=== PATIENT | male | born 1965 | race Caucasian/White ===

== ENCOUNTER 2025-02-24 10:38 | Observation (INO) ==
--- NOTE | 2025-02-01 09:02 | PAT Medication Instructions ---
Medication Instructions Date of Service February 01, 2025 Home Medications albuterol 90 mcg-budesonide 80 mcg/actuation HFA aerosol inhaler (Airsupra) 2 inh inhalation DAILY PRN amlodipine 10 mg tablet 10 mg PO QAM ahxaqbb-yghanltothwao-lqrrgadz 250 mg-250 mg-65 mg tablet (Excedrin Extra S trength) 1 tab PO Q6H PRN budesonide 160 mcg-glycopyr 9 mcg-formot 4.8 mcg/actuation HFA inhaler (Breztri Aerosphere) 2 inh inhalation BID cholecalciferol (vitamin D3) 50 mcg (2,000 unit) capsule (Vitamin D3) 50 mcg PO QAM fluticasone propionate 50 mcg/actuation nasal spray,suspension 2 spray intranasal DAILY PRN loratadine-pseudoephedrine ER 10 mg-240 mg tablet,extended [id number] (Claritin-D 24 Hour) 1 tab PO DAILY PRN losartan 100 mg tablet 100 mg PO QAM omeprazole 20 mg tablet,delayed release 20 mg PO QAM vitamin B complex 1 tab PO QAM zinc 15 mg tablet 15 mg PO QPM Continue as directed fluticasone propionate 50 mcg/actuation nasal spray,suspension 2 spray intranasal DAILY PRN(if needed) albuterol 90 mcg-budesonide 80 mcg/actuation HFA aerosol inhaler (Airsupra) 2 inh inhalation DAILY PRN(use if needed; please bring with you to hospital day of surgery if possible) ASK your surgeon for instructions jqqyxkj-tcnsajsyparkm-sqayglqq 250 mg-250 mg-65 mg tablet (Excedrin Extra Strength) 1 tab PO Q6H PRN DO NOT take the morning of surgery cholecalciferol (vitamin D3) 50 mcg (2,000 unit) capsule (Vitamin D3) 50 mcg PO QAM loratadine-pseudoephedrine ER 10 mg-240 mg tablet,extended [id number] (C laritin-D 24 Hour) 1 tab PO DAILY PRN losartan 100 mg tablet 100 mg PO QAM vitamin B complex 1 tab PO QAM Take morning of surgery With a small sip of water, OTHERWISE NOTHING TO EAT OR DRINK AFTER MIDNIGHT: amlodipine 10 mg tablet 10 mg PO QAM budesonide 160 mcg-glycopyr 9 mcg-formot 4.8 mcg/actuation HFA inhaler (Breztri Aerosphere) 2 inh inhalation BID omeprazole 20 mg tablet,delayed release 20 mg PO QAM Take evening before surgery budesonide 160 mcg-glycopyr 9 mcg-formot 4.8 mcg/actuation HFA inhaler (Breztri Aerosphere) 2 inh inhalation BID zinc 15 mg tablet 15 mg PO QPM Other Notes If you have any questions please call us at [phone] or [phone] or [phone] or [phone]
--- NOTE | 2025-02-10 14:49 | Anesthesiology Consultation ---
Date of Service February 10, 2025 Assessment & Plan (1) Encounter for pre-operative examination: - Outpatient joint assessment: Patient is currently scheduled for inpatient pathway. If re-evaluated and patient/surgeon requests outpatient pathway, patient is acceptable candidate for outpatient joint program from anesthesia standpoint pending surgeon's office assessment of pt motivation/support/completion of same day joint program preop requirements. Chart Review Chart Review: Acceptable Risk for Surgery and Patient seen in Pre Admission Testing Teaching & Discussion Pre-Anesthesia Teaching/Discussion Notes: Instructed NPO after midnight before surgery, except medications with 15 cc of water. Medication instructions provided according to the PAT guidelines. History Surgery Operation Date: 02/24/25 12:30 Proposed Procedures p Left Total Knee Arthroplasty - Avinash Fragoso MD Height/Weight Height: 5 ft 8 in Weight: 85.3 kg Allergies Allergy/AdvReac Type Severity Reaction Status Date / Time Sulfa (Sulfonamide Allergy Rash Verified 01/29/25 15:00 Antibiotics) Medications Home Medications Medication Instructions Recorded Confirmed Last Taken albuterol 90 mcg-budesonide 80 2 inh inhalation DAILY PRN 01/29/25 01/29/25 Unknown mcg/actuation HFA aerosol inhaler Shortness Of Breath (Airsupra) amlodipine 10 mg tablet 10 mg PO QAM 01/29/25 01/29/25 Unknown ilstyya-rdicvycicrqbk-bublepls 250 1 tab PO Q6H PRN Pain 01/29/25 01/29/25 Unknown mg-250 mg-65 mg tablet (Excedrin Extra Strength) budesonide 160 mcg-glycopyr 9 2 inh inhalation BID 01/29/25 01/29/25 Unknown mcg-formot 4.8 mcg/actuation HFA inhaler (Breztri Aerosphere) cholecalciferol (vitamin D3) 50 50 mcg PO QAM 01/29/25 01/29/25 Unknown mcg (2,000 unit) capsule (Vitamin D3) fluticasone propionate 50 2 spray intranasal DAILY PRN 01/29/25 01/29/25 Unknown mcg/actuation nasal Congestion spray,suspension loratadine-pseudoephedrine ER 10 1 tab PO DAILY PRN allergies 01/29/25 01/29/25 Unknown mg-240 mg tablet,extended [id number] (Claritin-D 24 Hour) losartan 100 mg tablet 100 mg PO QAM 01/29/25 01/29/25 Unknown omeprazole 20 mg tablet,delayed 20 mg PO QAM 01/29/25 01/29/25 Unknown release vitamin B complex 1 tab PO QAM 01/29/25 01/29/25 Unknown zinc 15 mg tablet 15 mg PO QPM 01/29/25 01/29/25 Unknown Past Medical History Medical History (Updated 02/10/25 @ 14:53 by María De Jesus PA-C) Asthma with COPD daily and prn inh (flares with allergies and needs to use it); last albuterol inhaler use one week ago History of COVID-19 2019 into 2020, spent 9 days ICU, 13 days total in hospital, [facility]>residual shortness of breath with activities History of hypertension controlled, stable per pt Hx of gastroesophageal reflux (GERD) controlled, stable per pt Hx of migraines Sleep apnea CPAP "most nights" Patient denies h/o stroke, seizures, heart attack, heart failure, blood clots/DVTs or blood transfusions. Exercise / Class Metabolic Activity II 4-5 Yardwork/Stairs/Walk up hill (shortness of breath with one flight of stairs since having COVID 2020-denies change or worsening-denies chest d iscomfort) Past Surgical History Surgical History History of esophagogastroduodenoscopy (EGD) History of open reduction and internal fixation (ORIF) procedure left leg, as a child, pin placed and traction for 1 month > pin removed Hx of colonoscopy Hx of hand surgery to repair nerve in right hand Hx of left inguinal hernia repair Hx of nasal septoplasty (2016) Hx of tonsillectomy Past Anesthesia History No Hx of Anesthesia Complications and No Family Hx of Anesthesia Complications History of PONV No Hx of PONV and No Hx of Motion Sickness Social History Smoking Status: Never smoker Do You Dip or Chew Tobacco: No Hx Alcohol Use: No Hx Substance Use: No substance use type: does not use Review of Systems Patient denies chest pain, fever, chills, cough, wheezing, or palpitations. Physical Exam Vital Signs Vitals BP 149/98 P 93 TEMP 98.2 SP02 95% on RA RESP 18 Physical Patient resting comfortably in chair in no acute distress, alert and oriented, responding appropriately throughout visit Full cervical extension range of motion without pain TMD < 3 finger breadths Mallampati Score 2 Dentition: implant, several caps/crowns, denies chipped or loose teeth, or bridges Lungs: normal respiratory effort. Good air movement, clear throughout to auscultation, no adventitious breath sounds Cardiac: regular rate and rhythm, no murmurs noted Carotid arteries: negative bruit bilat Lab Results Anesthesia Preop Results Results Anesthesia Widget: WBC 6.22 K/ul (4.8-10.8) 02/10/25 Hgb 14.2 g/dl (14.0-18.0) 02/10/25 Hct 40.9 % (42.0-52.0) L 02/10/25 Plt 201 K/uL (130-400) 02/10/25 Na 140 mmol/L (136-145) 02/10/25 K 4.2 mmol/L (3.5-5.1) 02/10/25 Cl 104 mmol/L (98-107) 02/10/25 CO2 30 mmol/L (21-32) 02/10/25 BUN 16 mg/dl (6-23) 02/10/25 Creat 1.08 mg/dl (0.6-1.4) 02/10/25 Glucose Level 93 mg/dl (70-99(Fasting)) 02/10/25 PT 10.5 Seconds (9.0-12.0) 02/10/25 PTT 28 Seconds (21-31) 02/10/25 INR 1.0 (0.9-1.1) 02/10/25 Urine Color Yellow 02/10/25 Urine Appearance Clear (Clear) 02/10/25 Urine pH 6.0 (4.5-7.5) 02/10/25 Urine Specific [place] 1.013 (1.000-1.030) 02/10/25 Urine Protein Negative (Negative) 02/10/25 Urine Glucose (UA) Negative (Negative) 02/10/25 Urine Ketones Negative (Negative) 02/10/25 Urine Blood Negative (Negative) 02/10/25 Urine Nitrite Negative (Negative) 02/10/25 Urine Bilirubin Negative (Negative) 02/10/25 Urine Urobilinogen Negative (Negative) 02/10/25 Urine Leukocyte Esterase Negative (Negative) 02/10/25 Blood Type A Positive 02/10/25 Antibody Screen NEGATIVE 02/10/25 Testing Electrocardiogram Date: 02/10/25 NSR, rate 89 bpm Left axis deviation RBBB Possible inferior infarct Chest X-Ray Date: 02/10/25 No acute cardiopulmonary findings. Echocardiogram Date: 10/18/20 EF 66% Normal LV wall motion Grade I diastolic dysfunction Stress Test Date: 01/09/23 MPHR 84% Negative exercise stress echo for ischemia=EKG nondiagnostic due to failure to achieve 85% MPHR EF 66% Normal LV wall motion Grade I diastolic dysfunction Mild aortic valve regurgitation
--- NOTE | 2025-02-22 20:18 | History & Physical Report ---
Date of Service February 22, 2025 Assessment & Plan (1) Bilateral primary osteoarthritis of knee: Plan: Bilateral knee osteoarthritis left end-stage right mild to moderate. Proceed with left total knee replacement. History of Present Illness Chief Complaint: Chronic bilateral knee pain left greater than right Primary Care Provider: Franco De MD 59-year-old male with chronic bilateral knee pain related to osteoarthritis. He has had previous injections of steroids but they are no longer working and wants to proceed with knee replacement. He has diminishing function in his left knee. Patient denies headaches, sweats, fevers, chills, double vision, blurred vision, cough, sore throat, dysphagia, chest pain, n/v/d/c, numbness, tingling, fatigue, urinary symptoms, mood disorders. ROS positive for shortness of breath with activity climbing a flight of stairs walking up a hill or running short distance. Acid reflux. Allergies Allergy/AdvReac Type Severity Reaction Status Date / Time Sulfa (Sulfonamide Allergy Rash Verified 01/29/25 15:00 Antibiotics) Home Medications Medication Instructions Recorded Confirmed Type albuterol 90 mcg-budesonide 80 2 inh inhalation DAILY PRN 01/29/25 01/29/25 History mcg/actuation HFA aerosol inhaler Shortness Of Breath (Airsupra) amlodipine 10 mg tablet 10 mg PO QAM 01/29/25 01/29/25 History liisppr-nkuqonyiqjefw-sjqrggzj 250 1 tab PO Q6H PRN Pain 01/29/25 01/29/25 History mg-250 mg-65 mg tablet (Excedrin Extra Strength) budesonide 160 mcg-glycopyr 9 2 inh inhalation BID 01/29/25 01/29/25 History mcg-formot 4.8 mcg/actuation HFA inhaler (Breztri Aerosphere) cholecalciferol (vitamin D3) 50 50 mcg PO QAM 01/29/25 01/29/25 History mcg (2,000 unit) capsule (Vitamin D3) fluticasone propionate 50 2 spray intranasal DAILY PRN 01/29/25 01/29/25 History mcg/actuation nasal Congestion spray,suspension loratadine-pseudoephedrine ER 10 1 tab PO DAILY PRN allergies 01/29/25 01/29/25 History mg-240 mg tablet,extended [id number] (Claritin-D 24 Hour) losartan 100 mg tablet 100 mg PO QAM 01/29/25 01/29/25 History omeprazole 20 mg tablet,delayed 20 mg PO QAM 01/29/25 01/29/25 History release vitamin B complex 1 tab PO QAM 01/29/25 01/29/25 History zinc 15 mg tablet 15 mg PO QPM 01/29/25 01/29/25 History Past Med/Surg History Problem List (Updated 02/22/25 @ 20:17 by Avinash Fragoso MD) Bilateral primary osteoarthritis of knee Encounter for pre-operative examination Medical History History of COVID-19 2019 into 2020, spent 9 days ICU, 13 days total in hospital, [facility] [place]>residual shortness of breath with activities Hx of migraines Sleep apnea CPAP "most nights" Hx of gastroesophageal reflux (GERD) controlled, stable per pt History of hypertension controlled, stable per pt Asthma with COPD daily and prn inh (flares with allergies and needs to use it); last albuterol inhaler use one week ago Surgical History Hx of hand surgery to repair nerve in right hand History of open reduction and internal fixation (ORIF) procedure left leg, as a child, pin placed and traction for 1 month > pin removed Hx of left inguinal hernia repair History of esophagogastroduodenoscopy (EGD) Hx of colonoscopy Hx of nasal septoplasty (2016) Hx of tonsillectomy Social History Smoking Status: Never smoker Second Hand Exposure: Yes (hx as child); Do You Dip or Chew Tobacco: No; Tobacco Cessation Education Requested by Patient: No Hx Alcohol Use: No Hx Substance Use: No Preferred Language: Persian Communication Ability: Effective Tool Machinist Required: No Beliefs That Will Affect Care: None Current Living Situation: Spouse Other Information That Helps Us Care for You: No Feels Safe at Home: Yes Safety Concerns: Feels Safe At This Time Assistive Devices: CPAP and Other Assistive Devices Comment: 1 fake tooth implanted lower jaw Review of Systems All systems reviewed & are unremarkable except as noted in HPI & below Physical Exam Constitutional: WD/WN, vitals as above Respiratory: normal respiratory effort; no respiratory distress Cardiovascular: Rate/Rhythm: regular rate and regular rhythm Musculoskeletal: Left knee varus in alignment right knee mild varus. He has medial joint line tenderness bilaterally. He has mild patellofemoral crepitation on the left with discomfort with Kylah tests and moderate pain with flexion 0 through 135 degrees range of motion with old scars left lower leg from old trauma and 2+ edema left leg. Neurocirculatory exam otherwise intact. Skin: no rashes, warm and dry Neurologic: normal touch/pain/proprioception Psychiatric: A+Ox3, euthymic affect Results & Data Diagnostic Findings The x-rays demonstrate end-stage grade 4 medial compartment osteoarthritis left knee with moderate patellofemoral osteoarthritis and more relatively mild to moderate osteoarthritis in the right knee.
[~2025-02-24 10:38] MED LIST: BUPIVACAINE 0.5 % 5 MG/1 ML PF 10ML VIAL ONE; DEXAMETHASONE SOD INJ 4 MG/ML VIAL ONE; GLYCOPYRROLATE 0.2 MG/ML VIAL ONE; LIDOCAINE 2% 2 ML VIAL/AMP(20MG/ML) INFIL ONE; MIDAZOLAM HCL 1 MG/ML 2ML VIAL ONE; ONDANSETRON INJ 2 MG/ML 2 ML VIAL ONE; PHENYLEPHRINE 100MCG/ML 5ML SYR ONE; PROPOFOL IV EMULSION 10 MG/ML 20 ML VIAL IV ONE; ROPIVACAINE 0.5% 5 MG/ML 30 ML VIAL ONE; fentaNYL citrate PF 100 MCG/2 ML VIAL ONE
[2025-02-24] MEDS ORDERED: ePHEDrine sulfate 50 MG/ML AMP IV PRN (10:47)
[2025-02-24] MEDS ORDERED: ATROPINE SULFATE 0.1 MG/ML 10ML SYR IV PRN (10:47)
[2025-02-24] MEDS ORDERED: ONDANSETRON INJ 2 MG/ML 2 ML VIAL IV PRN ×2 (10:47→16:11)
[2025-02-24] MEDS ORDERED: fentaNYL citrate PF 100 MCG/2 ML VIAL IV PRN (10:47)
[2025-02-24] MEDS: LR 60ML/HR IV SCH (11:04)
[2025-02-24] MEDS: LR 500ML BOLUS, THEN 15ML/HR IV SCH (11:04)
[2025-02-24] MEDS: FAMOTIDINE 20 MG TAB PO SCH (11:05)
[2025-02-24] MEDS: GABAPENTIN 600 MG DOSE PO SCH (11:05)
[2025-02-24] MEDS: ACETAMINOPHEN 500 MG TAB PO SCH ×2 (11:05→23:16)
[2025-02-24] MEDS: METOCLOPRAMIDE HCL 10 MG TABLET PO SCH (11:05)
[2025-02-24] MEDS: dexAMETHasone**PF** 10 MG/ML VIAL IV SCH (11:06)
--- NOTE | 2025-02-24 12:31 | History & Physical Bridge Note ---
Date of Service February 24, 2025 History & Physical Bridge Note I have examined the patient, reviewed the History & Physical and in the interval since the performance of the History & Physical I have noted the following changes of clinical significance: no changes noted
[2025-02-24] MEDS: TRANEXAMIC ACID 1,000 MG **IV Pre-op IV SCH (12:47)
[2025-02-24] MEDS: ceFAZolin 2000MG 2,000 MG/15 ML SYR IV SCH ×2 (13:01→20:39)
[2025-02-24] MEDS: ROPIVACAINE 0.5% HCL/PF 246 MG, Ketorolac (*for OR use only*) 30 MG in SODIUM CHLORIDE ... INFIL SCH (13:44)
[2025-02-24] MEDS: ORTHO JOINT ANESTHETIC ONE (13:45)
[2025-02-24] MEDS: TRANEXAMIC ACID 1,000 MG **IV Intra-op IV SCH (14:40)
--- NOTE | 2025-02-24 15:30 | Operative Report ---
Post Operative Report Pre & Post Diagnosis Operation Date: 02/24/25 12:35 Pre-Op Diagnosis: Primary osteoarthritis of left knee Post-Op Diagnosis: Primary osteoarthritis of left knee I identified the patient and participated in the time-out.: Yes Procedure Operation Date: 02/24/25 12:35 Actual Procedures p Left Total Knee Arthroplasty(Left), matilde and Acticoat superficial wound VAC application- Avinash Fragoso MD Surgeon Avinash Fragoso MD Command And Control Specialist Gamaliel WALL Estimated Blood Loss 5 Findings Consistent with Post-Op Diagnosis Specimens Bone cuts Drains 2 Hemovac Anesthesia Type General Regional Complications none Disposition Disposition: Recovery Room Indications 59-year-old male with left knee pain failed conservative management radiographic grade 4 joint space narrowing medial compartment on flexion weightbearing films and moderate patellofemoral osteoarthritis. Description of Procedure Patient taken to the operating room the size under spinal MAC regional block anesthesia. Patient was placed supine on the operating table. A pneumatic tourniquet was placed about the left upper thigh. The left lower extremity was prepped and draped in sterile fashion. Knee exam demonstrated a thin leg with full range of motion and about 10 to 15 degrees hyperextension. Patient a varus knee with no pseudolaxity. The leg was elevated exsanguinated with an Esmarch bandage and pneumatic tourniquet was raised to 275 millimeters of mercury. Skin incised sharply in longitudinal fashion. Subcutaneous flaps elevated. Incision was made through the medial retinaculum extending up in the mid third of the quadriceps tendon and down to the medial tibial tubercle. Intra-articular findings demonstrated medial compartment and patellofemoral osteoarthritis grade 4 flexion osteoarthritis medial compartment and grade 4 chondral lesion medial trochlear groove patellofemoral joint and grade III chondromalacia patella. The Pervacio triathlon total knee arthroplasty system was used. To expose the knee the infrapatellar fat pad was resected. The meniscal remnants and cruciate ligaments were resected. The anterior fat pad over the femur in the area of the location of the anterior flange of the femoral component was resected. The lateral synovial bands were released. The femur was exposed. The CT scan generated custom guide was placed on the femur pinned in position and then the distal femoral cut was made in the +0 position. Bone quality was excellent. The knee was extended and a subperiosteal peel lateral release was performed around the patella. Patella width was measured and width was reproduced using a freehand cut technique and an asymmetric 35 x 10 mm patella component. The 3 drill holes were made . The custom CT generated 4-in-1 cutting block was placed rotated appropriately to match the epicondylar axis pinned in position and then the anterior posterior and chamfer cuts are made. The tibia was then subluxed. The custom tibial cutting guide for the size 4 tibia was applied. The cartilage was curetted off the bone to make sure we had bone contact for appropriate contact points for alignment of the guide which was pinned in position and the alignment mary alice appeared to have appropriate alignment and then this was pinned in position and then the proximal tibial cut was made with the oscillating saw. The tibial stem guide was then adjusted with external rotation in line with the tibial tubercle and pinned in position. The punch for the primary tibial tray was used. Bone was solid. A lamina certified physician's assistant was used and the flexion extension gaps were balanced. No releases were required. All posterior osteophytes removed. All meniscal remnants were resected. The notch cutting device was centered appropriately and the femoral notch cut was made. The femoral trial was inserted. Drill holes for the fixation pegs were drilled. Trial tibial inserts were placed and size 13 gave balanced ligaments through flexion and extension. Patella tracking was assessed. The patella tracked centrally. The trial components were then removed and the orthomix anesthetic cocktail was in jected per protocol. The knee was then copiously irrigated with pulsatile lavage saline solution. Final components were then cemented with Refobacin cement. Final components were Bath triathlon size 5 left posterior stabilized femoral component with a size 4 primary tibial baseplate and a 4 x 13 mm X.3 polyethylene tibial bearing insert and a 35 x 10 mm X.3 polyethylene asymmetric patella and femur had distal fixation pegs on it.. After the cement cured a 3-minute Betadine soak was performed followed by further pulsatile lavage irrigation with saline solution. 2 Hemovac drains were brought out laterally. The quadriceps tendon and medial retinaculum were closed with #2 FiberWire bnqhxi-as-vuabm sutures along the medial retinaculum medial side of the patella and distal quadriceps tendon and an additional gpfgyf-cg-okfyv suture at the apex of the quadriceps tendon split proximally and an additional rncgpa-yb-msjmh suture at the level of the tibial polyethylene in the patella tendon. a 0 running locking STRATAFIX suture was placed starting at the proximal split in the quadriceps tendon extending down to the inferior pole the patella and then below that level nldyhl-so-xazoe #1 Vicryl sutures were utilized to repair the medial retinaculum to the patella tendon. The knee was taken through full range of motion and the repair was secure. Knee range of motion was 0 through 135 degrees. The subcutaneous tissues were closed with 2-0 Vicryl sutures. Skin was closed with surgical denia. A matilde and Acticoat superficial wound VAC was applied. The patient tolerated the procedure well. Gamaliel WALL was my physician district administrative assistant who participated as district administrative assistant and was involved in all aspects of the procedure including patient positioning prepping and draping,leg positioning ,soft tissue retraction and instrument management and participated in the closing and application of the wound VAC and will participate in postoperative care of the patient. The patient tolerated the procedure well. I attest to the content of the Intraoperative Record and any orders documented therein. Any exceptions are noted below.
--- NOTE | 2025-02-24 15:40 | XRay Report ---
XR knee LT 1 or 2V routine CLINICAL HISTORY: Surgical Post Op COMPARISON: None pertinent FINDINGS: 2 views of the left knee demonstrate postsurgical changes of a total knee arthroplasty. Th ere is satisfactory positioning alignment of the prosthetic components. A surgical drain in place. Po stsurgical changes are noted in the soft tissues. IMPRESSION: Satisfactory postop appearance ACT 112: Negative or not required by law. Electronically signed by: Malorie Fink M.D. 02/24/2025 3:39 PM
--- NOTE | 2025-02-24 15:47 | Anesthesiology Progress Note ---
Date of Service February 24, 2025 Anesthesia Post Procedure Vital Signs Vital Signs: Temp Pulse Pulse Resp BP Pulse Ox O2 Del Method 02/24/25 15:35 87 15 107/75 95 Oxymask 02/24/25 15:25 95 H 16 113/74 96 Oxymask 02/24/25 15:18 36.7 C 99 H 16 111/71 96 Oxymask 02/24/25 10:43 Room Air, CPAP 02/24/25 10:42 36.9 C 90 18 165/97 H 99 Room Air, CPAP O2 Flow Rate 02/24/25 15:35 5 02/24/25 15:25 5 02/24/25 15:18 5 02/24/25 10:43 02/24/25 10:42 Pain Intensity Left Knee: Pain Intensity: 7 Notes Mental Status: alert / awake / arousable Patient Amnestic to Procedure: Yes Nausea / Vomiting: adequately controlled Pain: adequately controlled Airway Patency, RR, SpO2: stable & adequate BP & HR: stable & adequate Hydration State: stable & adequate Neuraxial Anesthesia: was administered and sensory block is resolving Anesthetic Complications: no major complications apparent
[2025-02-24] MEDS ORDERED: NON-FORMULARY MEDICATION (Aspirin-Acetaminophen-Caffeine [Excedrin Extra Strength] 250-250 PO PRN (16:11)
[2025-02-24] MEDS ORDERED: FLUTICASONE PROPIONATE NA SPR 16 GM BTL PRN (16:11)
[2025-02-24] MEDS ORDERED: ALUMINUM/MAGNESIUM SUSP 30 ML UDC PO PRN (16:11)
[2025-02-24] MEDS ORDERED: bisacodyL 10 MG SUPP PR PRN (16:11)
[2025-02-24] MEDS ORDERED: diphenhydrAMINE Capsule 25 MG CAP PO PRN (16:11)
[2025-02-24] MEDS ORDERED: NALOXONE HCL 0.4 MG/1 ML VIAL/CARP IV PRN (16:11)
[2025-02-24] MEDS ORDERED: METOCLOPRAMIDE HCL INJ 5 MG/ML 2 ML VIAL IV PRN (16:11)
[2025-02-24] MEDS ORDERED: HYDROmorphone INJ 0.5 MG/0.5 ML SYR IV PRN (16:11)
[2025-02-24] MEDS ORDERED: MAGNESIUM HYDROXIDE SUSP 30 ML UDC PO PRN (16:11)
[2025-02-24] MEDS: SODIUM CHLORIDE 0.9% 1,000 ML IV SCH (16:25)
[2025-02-24] MEDS ORDERED: ALBUTEROL HFA 8 GM INHALER INH PRN (16:38)
[2025-02-24] MEDS ORDERED: PSEUDOEPHEDRINE HCL 30 MG TAB PO PRN (16:40)
[2025-02-24] MEDS: oxyCODONE HCL IR 5 MG TAB (IMMEDIATE RELEASE) PO PRN (18:20)
[2025-02-24] MEDS: DOCUSATE SODIUM 100 MG CAP PO SCH (20:37)
[2025-02-24] MEDS: SENNA 8.6 MG TAB PO SCH (20:37)
[2025-02-24] MEDS: ASPIRIN 81 MG ECTAB PO SCH (20:38)
[2025-02-24] MEDS: TRANEXAMIC ACID / 0.7% NACL 1,000 MG/100 ML BAG IV SCH (20:39)
[2025-02-24] MEDS ORDERED: NON-FORMULARY MEDICATION (Zinc 15 mg Tablet) PO SCH (21:00)
[2025-02-24] MEDS: KETOROLAC TROMETHAMINE 15 MG/ML VIAL IV PRN (23:17)
[2025-02-25 06:57] LABS: Hematocrit (blood only) 37.3 % (42.0-52.0); Hemoglobin 12.9 g/dl (14.0-18.0); Mean Corpuscular Hemoglobin 31.2 pg (25.0-34.0); Mean Corpuscular Hgb Conc 34.6 g/dL (32.0-36.0); Mean Corpuscular Volume 90.3 fL (80.0-100.0); Platelet Count 209 K/uL (130-400); Red Blood Count 4.13 M/uL (4.70-6.10); White Blood Count 11.42 K/ul (4.8-10.8)
[2025-02-25 07:13] LABS: BUN Creatinine Ratio 15.9 (10-20); Creatinine Clr Calc Pharmacy 76.1 ml/min; Potassium 4.4 mmol/L (3.5-5.1)
[2025-02-25 07:24] VITALS: BP 148/92; PULSE 72; RESP 18; TEMP 98.8; O2SAT 94
[2025-02-25] MEDS: dexAMETHasone 10 MG in SYRINGE 0 ML IV SCH (07:30)
--- NOTE | 2025-02-25 07:48 | Orthopedic Progress Note ---
Date of Service February 25, 2025 Assessment & Plan (1) Bilateral primary osteoarthritis of knee: Plan: Postop day 1 left knee replacement. Patient doing satisfactory. Patient can have drain DC'd prior to discharge and be discharged home today and do outpatient physical therapy at [place]. Follow-up 2 weeks for staple removal. Bilateral knee osteoarthritis left end-stage right mild to moderate. Proceed with left total knee replacement. Admission and Anticipated Discharge Date Admission Date: February 24, 2025 Subjective No complaints doing well Review of Systems Review of Systems: Noncontributory Physical Exam Musculoskeletal: Dressing dry and intact, matilde functional. Distal circulation sensorimotor function intact. Results & Data Vital Signs (Past 12 Hours) Vital Signs Temp Pulse Resp BP Pulse Ox O2 Del Method 02/25/25 07:23 37.1 C 72 18 148/92 H 94 Room Air 02/25/25 04:02 37 C 79 14 132/67 93 Room Air 02/24/25 23:21 37.1 C 81 14 125/77 93 Room Air Laboratory Results Labs stable Diagnostic Findings Well aligned total knee replacement left knee
[2025-02-25] MEDS: LOSARTAN POTASSIUM 50 MG TAB PO SCH (09:26)
[2025-02-25] MEDS: VITAMIN B COMPLEX TAB PO SCH (09:26)
[2025-02-25] MEDS: MULTIVITAMIN TAB PO SCH (09:26)
[2025-02-25] MEDS: PANTOprazole 40 MG TAB PO SCH (09:26)
[2025-02-25] MEDS: amLODIPine BESYLATE 5 MG TAB PO SCH (09:26)
[2025-02-25] MEDS: LORATADINE 10 MG TAB PO PRN (09:26)
[2025-02-25] MEDS: CHOLECALCIFEROL 25 MCG (1000 UNITS) TAB PO SCH (09:26)
[2025-02-25] MEDS: FLUTICASONE FUROATE 200MCG 14 PUFFS/INHALER INH SCH (09:28)
[2025-02-25] MEDS: UMECLIDINIUM/VILANTEROL 62.5/25MCG 7 PUFFS/INHALER INH SCH (09:29)
--- OUTSIDE RECORDS SUMMARY | 2025-02-25 11:09 | External Medical Summary | Summary of Care ---
Author Name Unknown Organization [facility] Address [address] [place] [address] Phone [phone] Care Team Providers Care Student Education Specialist Name Role Phone Franco De MD Primary Care Provider Encounter Details Date Type Department Care Team (Late st Contact Info) Description 02/23/2025 Orders Only [facility] [address] [facility] [place] [address] Franco De MD [address] [place] [address] Allergies Active Allergy Reactions Criticality Noted Date Comments Atorvastatin 07/30/2017 MYALGIAS Pravastatin Sodium 07/30/2017 FATIGUE DOESN'T FEEL WELL Propranolol Hcl 01/04/2004 fever and joint swelling, not sure if related to med Sulfa Antibiotics 12/17/2001 hives documented as of this encounter (statuses as of 02/23/2025) Medications FLUTICASONE PROPIONATE 50 MCG/ACT NA SUSP ONE INHALATION EACH NOSTRIL DAILY (DR. WILCOX) 1 Bottle 0 2 Active VITAMIN D 1000 UNITS PO CAPS Take 2 Capsules by mouth. 4 Active ipratropium-albu terol (COMBIVENT RESPIMAT) 20-100 MCG/ACT Inhaler ONE INHALATION EVERY SIX HOURS NEEDED FOR COUGH, WHEEZING, SHORTNESS OF BREATH 1 Inhaler 5 7 Active Loratadine-Pseud oephedrine ER 5-120 MG Tablet Extended Release 12 Hour Take 1 Tablet by mouth in the morning. Active albuterol-ipratr opium (DUONEB) 2.5-0.5 MG/3ML nebulizer solution USE VIA NEBULIZER EVERY 4-6 HOURS NEEDED FOR COUGHING, WHEEZING 120 Vial 8 Active Cyanocobalamin (B-12) 100 MCG TABS ONE DAILY 90 Tab 3 0 Active Excedrin Extra Strength 250-250-65 MG Oral Tablet (Aspirin-Acetami nophen-Caffeine 250-250-65 mg per tab) Take 1 Tablet by mouth every 6 hours as needed. Active amLODIPine Besylate 10 MG Oral Tablet (Norvasc)Indicat ions:HTN, goal below 130/80 TAKE 1 TABLET BY MOUTH EVERY DAY IN THE MORNING 90 Tablet 1 5 Active Omeprazole 20 MG Oral Capsule Delayed Release (PriLOSEC)Indica tions:Gastroesop hageal reflux disease without esophagitis TAKE 1 CAPSULE BY MOUTH EVERY DAY 30 Capsule 8 5 Active Losartan Potassium 100 MG Oral Tablet (Cozaar)Indicati ons:HTN, goal below 130/80 Take 1 Tablet by mouth in the morning. 90 Tablet 2 5 Active Breztri Aerosphere 160-9-4.8 MCG/ACT Inhalation Aerosol (Budeson-Glycopy rrol-Formoterol) Inhale 2 Puffs by mouth in the morning and 2 Puffs before bedtime. 5 Active Airsupra 90-80 MCG/ACT Inhalation Aerosol (Albuterol-Budes onide) Inhale 1-2 puffs every 4-6 hours as needed. 5 Active documented as of this encounter (statuses as of 02/23/2025) Active Problems Problem Noted Date Diagnosed Date Anxiety disorder due to medical condition 2020 B12 deficiency 11/23/2019 Overview (11/23/2019): LOW NORMAL B12 LEVEL 2019 Hypertrophy of both inferior nasal turbinates Deviated nasal septum 01/14/2017 Gastroesophageal reflux disease without esophagi tis 06/16/2016 Overview (05/21/2019): SYMPTOMS NOT CONTROLLED ON H2 CATHY Assessment & Plan (12/18/2024 2:44 PM EST): Discussed concern for chronic use of omeprazole. Advised to try otc pepcid to lower overall omep use. HTN, goal below 130/80 06/16/2016 Vitamin D deficiency 04/25/2014 Asthma, severe persistent 12/11/2011 Overview (12/16/2014): SPIROMETRY 11/2014; FEV1/FVC 0.82, FEV1 110% Assessment & Plan (02/15/2025 1:08 PM EDT): Overall well controlled on Breztri. Assessment & Plan (12/18/2024 2:44 PM EST): Overall doing well. He does have some exercise induced symptoms and advised to use albuterol prior to. Continue breztri and care w/ Dr. Lugo HTN, goal below 140/90 09/05/2009 Overview (09/05/2009): Modified per HTN protocol #16. Assessment & Plan (02/15/2025 1:08 PM EDT): Well controlled on losartan, norvasc. Assessment & Plan (12/18/2024 2:44 PM EST): Well controlled. Continue losartan, norvasc. Get prior to next visit in a year: Orders: BASIC METABOLIC PANEL; Future Migraine 09/25/2005 Chronic rhinitis 12/03/2002 documented as of this encounter (statuses as of 02/23/2025) Resolved Problems Problem Noted Date Diagnosed Date Resolved Date Pneumonia due to COVID-19 virus 10/22/2020 05/22/2022 COVID-19 virus infection 10/10/202006/2021 Moderate malnutrition 10/10/20202021 Acute respiratory failure with hypoxia 01/31/2018 10/22/2020 Parainfluenza infection 01/30/2018 08/0 04/2019 SOB (shortness of breath) 01/30/2018 Cough 01/30/2018 05/20/2019 Asthma, moderate persistent 01/30/2018 05/20/2019 Hypokalemia 01/30/2018 02/01/2018 Asthma exacerbation 01/30/2018 02/02/20 18 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 ADVANCE DIRECTIVE INFORMATION 11/13/2005 08/17/2024 Overview (11/13/2005): No, Advance Directive brochure given to patient. s/p facial rash 06/21/2003 12/11/2011 documented as of this encounter (statuses as of 02/23/2025) Immunizations Name Administration Dates Next Due COVID-19 mRNA, LNP-s, No Pre serve, 2-Dose Series (Carrier IQ) 08/12/2021,01/24/2021,01/03/2021 Pneumococcal Conjugate Vacci ne, 20-valent ([id number]) 12/18/2024 Pneumococcal Polysaccharide PPV23 (Pneumovax) 12/11/2011 Seasonal Influenza Vac., MDV , IM, 0.5 mL (Fluzone) 11/08/2014,10/20/2013,07/15/2012,12/11 Seasonal Influenza, PF, 6 M & above, IM , (FluLaval or Fluzone) 08/18/2022,11/23/2021,08/15/2020,09/08,07/30/2017 Seasonal Influenza, Quadriva lent, No Preserve, IM 08/14/2018,12/04/2016,11/11/2015 TDAP (age 10 and older)(Boostrix) 05/20/2019 TDAP, Age 7 and older, IM (Adacel) 04/05/2008 Zoster Vaccine Recombinant (Shingrix) 02/22/2023 ,12/13/2022 documented as of this encounter Social History Tobacco Use Types Packs/Day Years Used Date Smoking Tobacco: Never Smokeless Tobacco: Never Alcohol Use Standard Drinks/Week Comments No 0 (1 standard drink = 0.6 oz pur e alcohol) PHQ-2 Answer Date Recorded PHQ Adult Total Score 0 12/18/2024 Hunger Vital Sign Answer Date Recorded Within the past 12 months, y ou worried that your food would run out before you got the money to buy more. Never true 12/18/19 25 Within the past 12 months, t he food you bought just didn't last and you didn't have money to get more. Never true 12/17/2024 Childcare Answer Date Recorded Do you feel overwhelmed with taking care of a child, family member or friend? No 12/17/2024 Does your family need help f inding childcare? (Household - for ages 0-17 years) Not on file 12/17/2024 Clothing Answer Date Recorded Have you been unable to get clothing when it was really needed? No 12/17/2024 Is your family able to get c lothes or diapers when needed? (Household - for ages 0-17 years) Not on file 12/17/2024 Personal Safety Answer Date Recorded Do you feel unsafe or have concerns for your saf ety? No 12/17/2024 Do you have concerns for you r family's safety? (Household - for ages 0-17 years) Not on file 12/17/2024 Utilities Answer Date Recorded Do you have trouble paying y our heating, water, or electric bill? No 12/17/2024 Is your family able to pay t he heat, water, or electric bill? (Household - for ages 0-17 years) Not on file 12/17/2024 Does your family have access to good internet? (Household - for ages 0-17 years) Not on file 12/17/2024 Employment Status Answer Date Recorded Are you unemployed or without regular income? No 12/17/2024 Does the household have a re gular source of income? (Household - for ages 0-17 years) Not on file 12/17/2024 Social Connections Answer Date Recorded How often do you feel lonely or isolated from th ose around you? Never 12/17/2024 Financial Resource Strain Answer Date R ecorded Do you have any trouble payi ng for your medications, or do you think you might in the future? No 12/17/2024 Does your family have troubl e paying for medicine? (Household - for ages 0-17 years) Not on file 12/17/2024 Transportation Needs Answer Date Record ed Do you have trouble getting a ride to medical visits or work? (Adult - for ages 18 years and over) Not on file 12/17/2024 Does your family have a hard time getting a ride to doctors visits? (Household - for ages 0-17 years) Not on file 12/17/2024 Has lack of transportation k ept you from medical appointments, meetings, work, or from getting things needed for daily living? Check all that apply. No 12/17/2024 Do you (or your family) have trouble finding or paying for a ride (transportation)? (Household - for ages 0-17 years) Not on file 12/17/2024 Housing Stability Answer Date Recorded Do you currently live in a s helter or have no steady place to sleep at night? No 12/17/2024 Do you think you are at risk of becoming homeless? (Adult - for ages 18 years and over) Not on file 12/17/2024 Does your family worry about paying for your home or becoming homeless? (Household - for ages 0-17 years) Not on file 0 12/17/2024 Are you homeless or worried that you might be in the future? No 12/17/2024 Are you (or your family) kelly eless or worried that you might be in the future? (Household - for ages 0-17 years) Not on file Food Insecurity Answer Date Recorded Do you need food for this week? No 12/02/2023 Are you able to get enough f ood for your family? (Household - for ages 0-17 years) Not on file 12/02/2023 Does your family need food t his week? (Household - for ages 0-17 years) Not on file 12/02/2023 Do you always have enough fo od for your family? (Household - for ages 0-17 years) Not on file 12/02/2023 Food Insecurity Answer Date Recorded Within the past 12 months, y ou worried that your food would run out before you got the money to buy more. Never true 12/18/19 25 Within the past 12 months, t he food you bought just didn't last and you didn't have money to get more. Never true 12/17/2024 Do you need food for this week? No 12/17/2024 Sex and Gender Information Value Date Recorded Sex Assigned at Male 11/23/2019 2:28 PM EST Legal Sex Male 7:15 AM EST Gender Identity Male 11/23/2019 2:28 PM EST Sexual Orientation Straight 11/23/2019 2: 28 PM EST documented as of this encounter Functional Status * Are you deaf or do you have serious difficulty hearing? Answer Date of Assessment Author No 01/30/2018 11:08 PM Lizeth Lundy RN * Are you blind or do you have serious difficulty seeing, even when wearing glasses? Answer Date of Assessment Author No 01/30/2018 11:08 PM Lizeth Lundy RN * Do you have serious difficulty walking or climbing stairs? (5 years old or older) Answer Date of Assessment Author No 10/10/2020 12:19 PM EST Brendan ward, Suzanne, AUDIT MANAGER * Do you have difficulty dressing or bathing? (5 years old or older) Answer Date of Assessment Author No 01/30/2018 11:08 PM Lizeth Lundy RN * Because of a physical, mental, or emotional condition, do you have difficulty doing errands alone such as visiting a doctor’s office or shopping? (15 years old or older) Answer Date of Assessment Author No 01/30/2018 11:08 PM Lizeth Lundy RN documented as of this encounter Mental Status * Because of a physical, mental, or emotional condition, do you have serious difficulty concentrating, remembering, or making decisions? (5 years old or older) Answer Entry Date Author No 01/30/2018 11:08 PM EDT Lizeth Khoury RN documented in this encounter Plan of Treatment Upcoming Encounters Date Type Department Care Team (Late st Contact Info) Description 03/23/2025 12:30 PM EDT Office Visit Dermatology, [facility] [place] [address] [place] [phone] Michelle Nash PA-C [address] [place] [address] 07/05/2025 9:30 AM EDT Hospital Encounter [facility], Endoscopy [address] [phone] Ryan Sharif MD [address] [place] [id number] 07/05/2025 9:30 AM EDT - 07/05/2025 10:00 AM EDT Surgery [facility], Endoscopy [address] [phone] Ryan Sharif MD [address] [place] [id number] COLONOSCOPY FLEXIBLE PROXIMAL DIAGNOSTIC 12/20/2025 2:00 PM EDT [facility] [phone] Franco De [facility] [address] [facility] [place] [address] Scheduled Procedures Name Priority Associated Diagnoses Date/Ti me COLONOSCOPY FLEXIBLE PROXIMAL DIAGNOSTIC Recall History of colonic polyps 07/05/2025 9:30 AM EDT Health Maintenance Due Date Last Done Comments HIV Screening 1979 Hepatitis C Screening 1982 Cologuard 2009 Fecal Occult Blood Test 2009 Sigmoidoscopy 2009 COVID-19 Vaccine ( season) 2024 08/12/2021, 01/24/2021, 01/03/2021 HOME BP CUFF VALIDATION YEARLY 12/15/2024 12/16/2023 Influenza Vaccine (FLU shot) (Season Ended) 2025 08/18/2022, 11/23/2021, 08/15/2020, Additional history exists Colonoscopy 07/18/2025 07/18/2020, 02/2020, 07/19/2015, Additional history exists Colorectal Cancer Screening 07/18/2025 Depression Screening 12/18/2025 12/18/2024 GFR 02/10/2026 02/10/2025, 11/14, 11/19/2023, Additional history exists Albumin/Creatinine Ratio 11/19/2026 024, 11/26/2022, 10/29/2019 Diabetes Screening 02/11/2028 02/10/2025, 0 11/30/2024, 11/19/2023, Additional history exists Lipid Panel 11/19/2028 11/19/2023, 10/16, 10/29/2019, Additional history exists DTap/Tdap Vaccines (3 - Td or Tdap) 05/20/2029 05/20/2019, 04/05/2008 RETIRED - COLONOSCOPY-EVERY 5 YRS AGES 18-100 Discontinued 07/18/2020, 07/18/2020, 07/19/2015, Additional history exists Zoster Vaccines Completed 02/22/2023, 12/13/2022 Pneumococcal Vaccine: 50+ Years Completed 12/18/2024, 12/11/2011 EKG Completed 02/10/2025, 03/2023, 10/10/2020, Additional history exists HPV (Gardasil) Vaccine Aged Out No lo nger eligible based on patient's age to complete this topic Hepatitis B Vaccine Aged Out No longe r eligible based on patient's age to complete this topic MENINGOCOCCAL (MENACTRA/MENVEO) Aged Out No longer eligible based on patient's age to complete this topic Meningitis B Vaccine (Bexsero/Trumemba) Aged Out No longer eligible based on patient's age to complete this topic documented as of this encounter Medical Devices Not on filedocumented as of this encounter Procedures Procedure Name Priority Date/Time Associated Diagnosis Comments XR CHEST 2 VIEWS Routine 02/10/2025 CHEMISTRY-OUTSIDE Routine 02/10/2025 documented in this encounter Results * CHEMISTRY-OUTSIDE (02/10/2025) Not all results display below - see scan for full detail OUTSIDE LAB (SEE SCANNED REPORT) Comment:SCAN INCLUDES - CBCD , PT INR, PTT, BMP, ALB, UA CREATININE 1.08 0.6 - 1.4 MG/DL OUTSIDE LAB (SEE SCANNED REPORT) EGFR 78.56 ML/MIN OUTSIDE LA B (SEE SCANNED REPORT) POTASSIUM 4.2 3.5 - 5.1 MMOL/L OUTSIDE LAB (SEE SCANNED REPORT) GLUCOSE 93 70 - 99 MG/DL OUTSIDE LAB (SEE SCANNED REPORT) HOURS FASTING OUTSID E LAB (SEE SCANNED REPORT) TRIGLYCERIDES-OU TSIDE LAB OUTSIDE LAB (SEE SCANNED REPORT) CHOLESTEROL-OUTS SHOAIB LAB OUTSIDE LAB (SEE SCANNED REPORT) HDL-OUTSIDE LAB OUTS SHOAIB LAB (SEE SCANNED REPORT) CHOL/HDL RATIO-OUTSIDE LAB OUTSIDE LAB (SEE SCANNED REPORT) LDL (CALCULATED)-OUT SIDE LAB OUTSIDE LAB (SEE SCANNED REPORT) LDL (DIRECT MEASURE)-OUTSIDE LAB OUTSIDE LAB (SEE SCANNED REPORT) HEMOGLOBIN, [id number] LAB OUTSIDE LAB (SEE SCANNED REPORT) PHOSPHORUS-OUTSI DE LAB OUTSIDE LAB (SEE SCANNED REPORT) PTH-OUTSIDE LAB OUTS SHOAIB LAB (SEE SCANNED REPORT) MICROALBUMIN RATIO-OUTSIDE LAB OUTSIDE LAB (SEE SCANNED REPORT) PROTEIN, UA-OUTSIDE LAB NEGATIVE NEGATIVE OUTSIDE LAB (SEE SCANNED REPORT) HGB 14.2 14.0 - 18.0 G/DL OUTSIDE LAB (SEE SCANNED REPORT) 02/10/2025 us Avinash Fragoso MD LABORATORY Final Resu lt OUTSIDE LAB (SEE SCANNED REPORT) * XR CHEST 2 VIEWS (02/10/2025) Anatomical Region Laterality Modality Chest Other 02/10/2025 us Avinash Fragoso MD RADIOLOGY (RAD GENERAL) Fi nal Result documented in this encounter Advance Directives * Full Code (Latest Code Status on File) Date Activated Date Inactivated Comments 10/10/2020 2:16 AM 10/22/2020 3:05 PM This order r eflects the patients wishes and were consensually agreed upon. * Full Code Date Activated Date Inactivated Comments 01/30/2018 9:48 PM 02/01/2018 2:42 PM This order r eflects the patients wishes and were consensually agreed upon. Care Teams Student Education Specialist Relationship Specialty Start Date End Date Franco De MD [address] [place] [id number] PCP - General Family Medicine 11/23/21 documented as of this encounter
--- OUTSIDE RECORDS SUMMARY | 2025-02-25 11:09 | External Medical Summary | Summary of Care ---
Author Name Unknown Organization [facility] Address [address] [place] [address] Phone [phone] Care Team Providers Care Maintainability Engineer Name Role Phone Franco De MD Primary Care Provider Reason for Visit * Reason Comments Pre-op Clearance Encounter Details Date Type Department Care Team (Late st Contact Info) Description 02/15/2025 12:40 PM EDT Office Visit [facility] [address] [facility] [place] [place] [address] Franco De MD 21 [place] [address] Preoperative clearance*; Severe persistent asthma without complication; HTN, goal below 140/90 Allergies Active Allergy Reactions Criticality Noted Date Comments Atorvastatin 07/30/2017 MYALGIAS Pravastatin Sodium 07/30/2017 FATIGUE DOESN'T FEEL WELL Propranolol Hcl 01/04/2004 fever and joint swelling, not sure if related to med Sulfa Antibiotics 12/17/2001 hives documented as of this encounter (statuses as of 02/16/2025) Medications FLUTICASONE PROPIONATE 50 MCG/ACT NA SUSP ONE INHALATION EACH NOSTRIL DAILY (DR. WILCOX) 1 Bottle 0 2 Active VITAMIN D 1000 UNITS PO CAPS Take 2 Capsules by mouth. 4 Active ipratropium-alb uterol (COMBIVENT RESPIMAT) 20-100 MCG/ACT Inhaler ONE INHALATION EVERY SIX HOURS NEEDED FOR COUGH, WHEEZING, SHORTNESS OF BREATH 1 Inhaler 5 7 Active Loratadine-Pseu doephedrine ER 5-120 MG Tablet Extended Release 12 Hour Take 1 Tablet by mouth in the morning. Active albuterol-iprat ropium (DUONEB) 2.5-0.5 MG/3ML nebulizer solution USE VIA NEBULIZER EVERY 4-6 HOURS NEEDED FOR COUGHING, WHEEZING 120 Vial 8 Active Cyanocobalamin (B-12) 100 MCG TABS ONE DAILY 90 Tab 3 0 Active Excedrin Extra Strength 250-250-65 MG Oral Tablet (Aspirin-Acetam inophen-Caffein e 250-250-65 mg per tab) Take 1 Tablet by mouth every 6 hours as needed. Active amLODIPine Besylate 10 MG Oral Tablet (Norvasc)Indica tions:HTN, goal below 130/80 TAKE 1 TABLET BY MOUTH EVERY DAY IN THE MORNING 90 Tablet 1 5 Active Omeprazole 20 MG Oral Capsule Delayed Release (PriLOSEC)Indic ations:Gastroes ophageal reflux disease without esophagitis TAKE 1 CAPSULE BY MOUTH EVERY DAY 30 Capsule 8 5 Active Losartan Potassium 100 MG Oral Tablet (Cozaar)Indicat ions:HTN, goal below 130/80 Take 1 Tablet by mouth in the morning. 90 Tablet 2 5 Active Breztri Aerosphere 160-9-4.8 MCG/ACT Inhalation Aerosol (Budeson-Glycop yrrol-Formotero l) Inhale 2 Puffs by mouth in the morning and 2 Puffs before bedtime. 5 Active Airsupra 90-80 MCG/ACT Inhalation Aerosol (Albuterol-[place] sonide) Inhale 1-2 puffs every 4-6 hours as needed. 5 Active SYMBICORT 160-4.5 MCG/ACT inhaler Inhale 2 Puffs by mouth in the morning and 2 Puffs before bedtime. 0 02/16/20 25 Discontin ued(Patie nt preferenc e/discont inuation) documented as of this encounter (statuses as of 02/16/2025) Active Problems Problem Noted Date Diagnosed Date [...] as of this encounter (statuses as of 02/16/2025) Resolved Problems Problem Noted Date Diagnosed Date [...] as of this encounter (statuses as of 02/16/2025) Immunizations Name Administration Dates Next Due COVID-19 mRNA, LNP-s, No Pre serve, 2-Dose Series ([employer]) 08/12/2021,01/24/2021,01/03/2021 Pneumococcal Conjugate Vacci ne, 20-valent ([id number]) 12/18/2024 Pneumococcal Polysaccharide PPV23 (Pneumovax) 12/11/2011 Seasonal [...] Date Smoking Tobacco: Never Smokeless Tobacco: Never Tobacco Cessation:Counseling Given: Not Answered Alcohol Use Standard Drinks/Week Comments No 0 [...] 12/17/2024 Does the household have a re lar source of income? (Household - for ages [...] PM EST documented as of this encounter Last Filed Vital Signs Vital Sign Reading Time Taken Comments Blood Pressure 132/84 02/15/2025 12:24 PM EDT Pulse 96 02/15/2025 12:24 PM EDT Temperature 36.4 °C (97.5 °F) 02/15/2025 12:24 PM E DT Respiratory Rate 16 02/15/2025 12:24 PM EDT Oxygen Saturation 97% 02/15/2025 12:24 PM EDT Inhaled Oxygen Concentration - - Weight 85.9 kg (189 lb 6.4 oz) 02/15/2025 12:24 PM EDT Height 170.2 cm (5' 7") 02/15/2025 12:24 PM EDT Body Mass Index 29.66 02/15/2025 12:24 PM EDT documented in this encounter Functional Status * Are you deaf or do you have serious difficulty hearing? Answer Date of Assessment Author No 01/30/2018 11:08 PM EDT Lizeth Khoury RN * Are you blind or do you have serious difficulty seeing, even when wearing glasses? Answer Date of Assessment Author No 01/30/2018 11:08 PM Lizeth Lundy RN * Do you have serious difficulty walking or climbing stairs? (5 years old or older) Answer Date of Assessment Author No 10/10/2020 12:19 PM DUANE ward, DAYANA Palacios * Do you have difficulty dressing or bathing? (5 years old or older) Answer Date of Assessment Author No 01/30/2018 11:08 PM EDLizeth Murray RN * Because of a physical, mental, [...] Entry Date Author No 01/30/2018 11:08 PM Lizeth Lundy RN documented in this encounter Progress Notes * Franco De MD - 02/15/2025 12:36 PM EDT Images from the original note were not included. Subjective Justino Frances II is a 59 year old male that presents for Pre-op Clearance He is here at the request of Dr. Fragoso for preop clearance for left knee replacement on 02/24/25. He had EKG, CXR, and blood work done at [facility] 5 days ago (results not received). He was told if he didn't hear back, that everything was fine. He hasn't heard anything back. He has been having problems w/ his left knee for years. He has been doing injections and they no longer work. He has been told there is no cartilage left. His last major procedure was a nasal procedure in 2017. He has not had any change in his health since that time. He has never had any problems w/ any procedure or anesthetic that he has had. He doesn't really check his bp at home. His asthma is generally well controlled. He sees Dr. Rodriguez. He has never had any problems w/ his asthma during any procedure. It usually kicks in when he has the flu. He does not feel limited at all by his breathing. He uses Breztri daily, and has Airsupra if he needs it, but that's rare. He takes claritin D for his allergies. He knows he shouldn't take the "D" part, but it helps. He does not have any chest pain w/ exertion. He could go up 2 flights of stairs w/o any difficulty.He thinks it's because of his weight. ROS: No f/c; no cp/sob; no n/v/d; no cough/cold symptoms; no UTI symptoms. Objective BP 132/84 | Pulse 96 | Temp 97.5 °F (36.4 °C) (Tympanic) | Resp 16 | Ht 5' 7" (1.702 m) | Wt 189 lb 6.4 oz (85.9 kg) | SpO2 97% | BMI 29.66 kg/m² | BSA 2.02 m² Physical Exam Vitals reviewed. Constitutional: General: He is not in acute distress. Appearance: Normal appearance. He is not ill-appearing. HENT: Right Ear: Tympanic membrane, ear canal and external ear normal. Left Ear: Tympanic membrane, ear canal and external ear normal. Nose: Nose normal. Mouth/Throat: Mouth: Mucous membranes are moist. Pharynx: Oropharynx is clear. No oropharyngeal exudate or posterior oropharyngeal erythema. Eyes: Extraocular Movements: Extraocular movements intact. Conjunctiva/sclera: Conjunctivae normal. Pupils: Pupils are equal, round, and reactive to light. Cardiovascular: Rate and Rhythm: Normal rate and regular rhythm. Heart sounds: Normal heart sounds. No murmur heard. No friction rub. No gallop. Pulmonary: Effort: Pulmonary effort is normal. Breath sounds: Normal breath sounds. No wheezing, rhonchi or rales. Abdominal: General: Bowel sounds are normal. There is no distension. Palpations: Abdomen is soft. There is no mass. Tenderness: There is no abdominal tenderness. There is no guarding. Musculoskeletal: Cervical back: Normal range of motion and neck supple. Skin: General: Skin is warm and dry. Neurological: Mental Status: He is alert and oriented to person, place, and time. Psychiatric: Mood and Affect: Mood normal. Behavior: Behavior normal. Results reviewed : BMP Assessment and Plan Preoperative clearance Pending results of labs, EKG and CXR from [facility], he is medically cleared for sugery. Will try to getthose results ELLIOT. Severe persistent asthma without complication Overall well controlled on Breztri. HTN, goal below 140/90 Well controlled on losartan, norvasc. Wrap-Up Follow Up: Return if symptoms worsen or fail to improve and as scheduled. I spent a total of 40-54 minutes (exact time 40 mins) on the date of service in preparation, delivery, and documentation of the care provided to Justino Frances II excluding any time spent in the performance of separately billed services. * Michelle Fernandez CMA - 02/15/2025 12:23 PM EDT Chief Complaint Patient presents with Pre-op Clearance documented in this encounter Miscellaneous Notes * Assessment & Plan Note - Franco De MD - 02/15/2025 1:08 PM EDT Associated Problem(s): Asthma, severe persistent Overall well controlled on Breztri. * Assessment & Plan Note - Franco De MD - 02/15/2025 1:08 PM EDT Associated Problem(s): HTN, goal below 140/90 Well controlled on losartan, norvasc. documented in this encounter Plan of Treatment Upcoming Encounters Date Type Department Care Team (Late st Contact Info) Description 03/23/2025 12:30 PM EDT Office Visit Dermatology, [facility] [address] [place] [address] Michelle Nash PA-C [address] [place] [address] 07/05/2025 9:30 AM EDT Hospital Encounter ENDO GECL, Endoscopy [address] [phone] Ryan Sharif MD [address] [place] [address] 07/05/2025 9:30 AM EDT - 07/05/2025 10:00 AM EDT Surgery ENDO GECL, Endoscopy [address] [phone] Ryan Sharif MD [address] [place] [address] COLONOSCOPY FLEXIBLE PROXIMAL DIAGNOSTIC 12/20/2025 2:00 PM EDT [facility] [address] [phone] Franco De MD [address] [address] Scheduled Procedures Name Priority Associated Diagnoses Date/Ti [...] Additional history exists Colorectal Cancer Screening 07/18/2025 GFR 11/30/2025 11/30/2024, 03/2024, 11/26/2022, Additional history exists Depression Screening 12/18/2025 12/18/2024 Albumin/Creatinine Ratio 11/19/2026 024, 11/26/2022, 10/29/2019 Diabetes Screening 11/30/2027 11/30/2024, 0 11/19/2023, 11/26/2022, Additional history exists Lipid Panel 11/19/2028 11/19/2023, 10/16, 10/29/2019, Additional history exists DTap/Tdap Vaccines (3 - Td or Tdap) 05/20/2029 05/20/2019, 04/05/2008 RETIRED - COLONOSCOPY-EVERY 5 YRS AGES 18-100 Discontinued 07/18/2020, 07/18/2020, 07/19/2015, Additional history exists Zoster Vaccines Completed 02/22/2023, 12/13/2022 Pneumococcal Vaccine: 50+ Years Completed 12/18/2024, 12/11/2011 HPV (Gardasil) Vaccine Aged Out No lo [...] Not on filedocumented as of this encounter Visit Diagnoses Diagnosis Physical exam, annual- Primary Routine general medical examination at a health care facility Severe persistent asthma without complication Screening for depression HTN, goal below 140/90 Unspecified essential hypertension Gastroesophageal reflux disease without esophagitis Esophageal reflux Screening for colon cancer Special screening for malignant neoplasms, colon Need for pneumococcal vaccination Need for prophylactic vaccination against streptococcus pneumoniae (pneumococcus) Neoplasm of uncertain behavior of skin Preoperative clearance- Primary Preoperative examination, unspecified Severe persistent asthma without complication HTN, goal below 140/90 Unspecified essential hypertension History of colonic polyps Personal history of colonic polyps documented in this encounter Advance Directives * [...] and were consensually agreed upon. Care Teams Maintainability Engineer Relationship Specialty Start Date End Date Franco De MD [address] [id number] PCP - General Family Medicine 11/23/21 documented as of this encounter
--- OUTSIDE RECORDS SUMMARY | 2025-02-25 11:09 | External Medical Summary | Summary of Care ---
Author Name Unknown Organization [facility] Address [address] [place] [address] Phone [phone] Care Team Providers Care Filter Tip Inspector Name Role Phone Franco De MD Primary Care Provider Reason for Visit * Reason Onset Date Comments Advice 02/23/2025 Left message 02/11 3 Encounter Details Date Type Department Care Team (Late st Contact Info) Description 02/23/2025 Telephone [facility] [address] [place] [address] Franco De MD [address] [place] [address] Advice (Left message 02/23) Allergies Active Allergy Reactions Criticality Noted Date Comments Atorvastatin 07/30/2017 MYALGIAS Pravastatin Sodium 07/30/2017 FATIGUE DOESN'T FEEL WELL Propranolol Hcl 01/04/2004 fever and joint swelling, not sure if related to med Sulfa Antibiotics 12/17/2001 hives documented as of this encounter (statuses as of 02/24/2025) Medications FLUTICASONE PROPIONATE 50 MCG/ACT NA SUSP [...] as of this encounter (statuses as of 02/24/2025) Active Problems Problem Noted Date Diagnosed Date [...] as of this encounter (statuses as of 02/24/2025) Resolved Problems Problem Noted Date Diagnosed Date [...] as of this encounter (statuses as of 02/24/2025) Immunizations Name Administration Dates Next Due COVID-19 mRNA, LNP-s, No Pre serve, 2-Dose Series ([employer]) 08/12/2021,01/24/2021,01/03/2021 Pneumococcal Conjugate Vacci ne, 20-valent ([id number]) 12/18/2024 Pneumococcal Polysaccharide PPV23 (Pneumovax) 12/11/2011 Seasonal [...] 10/10/2020 12:19 PM EST Brendan ward, Suzanne, AGRICULTURAL AGENT * Do you have difficulty dressing or [...] Author No 01/30/2018 11:08 PM EDT Lizeth Khoury, RN documented in this encounter Miscellaneous Notes * Telephone Encounter - Kay Santos OSA - 02/23/2025 4:23 PM EDT Reason for patient's call: Regarding in below for PreOp for surgery tomorrow 02/24 Caller was transferred to [facility] at the clinic. * Telephone Encounter - Jarocho Murdock OSA - 02/23/2025 3:58 PM EDT Tracey calling back from [facility] need EKG clearance from 02/15 addended ( in [facility]) to cleared. Patient having surgery tomorrow [phone] * Telephone Encounter - Laya Vick, MED ASSIST - 02/23/2025 3:46 PM EDT Left message for Tracey that pt was cleared and to call back for note if needed to . * Telephone Encounter - Marli Oneil LPN - 02/23/2025 3:23 PM EDT [facility] calling to question if pt is cleared for surgery, which is sched tomorrow; needing an answer by 4:00pm today Dr Pandya out of clinic, will ask Dr De Anda to review Labs, EKG, cxr available for review in [facility], pre op exam done on 02/15/25 * Telephone Encounter - Naida Patricia OSA - 02/23/2025 3:23 PM EDT Please let Tracey know at [phone] if a provider can complete this. If it will be after 4pm she states to please have someone call her and they will try to work with you on this as they'd like to keep the pt on schedule for his surgery. * Telephone Encounter - Kiki Lau LPN - 02/23/2025 11:28 AM EDT Tracey from [facility] Anesthesia dept calling Pt is scheduled for surgery tomorrow 02/24, Dr Fragoso. All his preop testing is avail in [employer] to review. Please indicate if he is cleared for surgery. Tracey has access to Epic, please addend OV note from 02/15, she will be able to review it. * Telephone Encounter - Monique Weston OSA - 02/23/2025 11:27 AM EDT Tracey from [facility], transferred to [facility] Nurse Telma documented in this encounter Plan of Treatment Upcoming Encounters Date Type Department Care Team (Late st Contact Info) Description 03/23/2025 12:30 PM EDT Office Visit Dermatology, [facility] Wilkins [address] [place] [address] Michelle Nash PA-C [address] [address] 07/05/2025 9:30 AM EDT Hospital [facility] [address] [facility] [place] [phone] Ryan Sharif MD [address] [place] [address] 07/05/2025 9:30 AM EDT - 07/05/2025 10:00 AM EDT Surgery ENDO GECL, Endoscopy Suite [facility] [address] [facility] [place] [phone] Ryan Sharif MD [address] [place] [address] COLONOSCOPY FLEXIBLE PROXIMAL DIAGNOSTIC 12/20/2025 2:00 PM EDT Office Visit [facility] [address] [facility] [place] [phone] Franco De MD [address] [place] [place] [phone] Scheduled Procedures Name Priority Associated Diagnoses Date/Ti [...] Not on filedocumented as of this encounter Advance Directives * Full Code (Latest Code Status on File) Date Activated Date Inactivated Comments 10/10/2020 2:16 AM 10/22/2020 3:05 PM This order r eflects the patients wishes and were consensually agreed upon. * Full Code Date Activated Date Inactivated Comments 01/30/2018 9:48 PM 02/01/2018 2:42 PM This order r eflects the patients wishes and were consensually agreed upon. Care Teams Filter Tip Inspector Relationship Specialty Start Date End Date Franco De MD [address] [place] [address] PCP - General Family Medicine 11/23/21 documented as of this encounter
--- OUTSIDE RECORDS SUMMARY | 2025-02-25 11:09 | External Medical Summary | Summary of Care ---
Author Name Unknown Organization [facility] Address [address] [place] [address] Phone [phone] Care Team Providers Care Pantographer Name Role Phone Franco De MD Primary Care Provider Reason for Visit * Reason Comments Pre-op Clearance Encounter Details Date Type Department Care Team (Late st Contact Info) Description 02/15/2025 12:40 PM EDT Office Visit [facility] 21 [place] [address] Franco De MD [address] [place] [address] Preoperative clearance*; Severe persistent asthma [...] 5 Active Airsupra 90-80 MCG/ACT Inhalation Aerosol (Albuterol-[place] sonide) Inhale 1-2 puffs every 4-6 hours [...] mRNA, LNP-s, No Pre serve, 2-Dose Series ([employer]) 08/12/2021,01/24/2021,01/03/2021 Pneumococcal Conjugate Vacci ne, 20-valent ([id number]) 12/18/2024 Pneumococcal Polysaccharide PPV23 (Pneumovax) 12/11/2011 Seasonal [...] 11:08 PM EDT Lizeth Khoury RN * Do you have serious difficulty walking or climbing stairs? (5 years old or older) Answer Date of Assessment Author No 10/10/2020 12:19 PM EST Brendan ward, Suzanne, WOOD HACKER * Do you have difficulty dressing or bathing? (5 years old or older) Answer Date of Assessment Author No 01/30/2018 11:08 PM EDT Liezth Khoury RN * Because of a physical, mental, or emotional condition, do you have difficulty doing errands alone such as visiting a doctor’s office or shopping? (15 years old or older) Answer Date of Assessment Author No 01/30/2018 11:08 PM HENOKT Lizeth Khoury RN documented as of this encounter Mental Status * Because of a physical, mental, or emotional condition, do you have serious difficulty concentrating, remembering, or making decisions? (5 years old or older) Answer Entry Date Author No 01/30/2018 11:08 PM HENOKT Lizeth Khoury RN documented in this encounter Progress Notes * Jarett De Anda MD - 02/23/2025 3:40 PM EDT Received TE that pt needs answer on labs. Just received today. Labs from [facility] and CXR reviewed, all normal. ECG reviewed, which may show some slight changes in leads II and AVL, however, prior ECG was tachycardic so subtle changes are difficult to appreciate given that vastly different rate. He did have a stress test which was normal in 2022. I called and he has had no pain, pressure or other abrupt change in stamina. Per PCP's note, can proceed with surgery given normal labs. I have low concern for heart disease atthis time and surgery does not need to be delayed. * Franco De MD - 02/15/2025 12:36 PM EDT Images from the original note were not included. Subjective Justino Frances II is a 59 year old male that presents for Pre-op Clearance He is here at the request of Dr. Fragoso for preop clearance for left knee replacement on 02/24/25. He had EKG, CXR, and blood work done at [facility] 5 days ago (results not received). [...] results of labs, EKG and CXR from [facility], he is medically cleared for sugery. [...] [address] [place] [address] Michelle Nash PA-C [address] [place] [place] [address] 07/05/2025 9:30 AM EDT Hospital Encounter ENDO GECL, Endoscopy Suite [facility] [address] [facility] [place] [phone] Ryan Sharif MD [address] [place] [address] 07/05/2025 9:30 AM EDT - 07/05/2025 10:00 AM EDT Surgery ENDO GECL, Endoscopy Suite [facility] [address] [facility] [place] [phone] Ryan Sharif MD [address] [place] [address] COLONOSCOPY FLEXIBLE PROXIMAL DIAGNOSTIC 12/20/2025 2:00 PM EDT Office Visit [facility] [address] [phone] Franco De MD [address] [place] [address] Scheduled Procedures Name Priority Associated Diagnoses Date/Ti [...] and were consensually agreed upon. Care Teams Pantographer Relationship Specialty Start Date End Date Franco De MD [address] [address] PCP - General Family Medicine 11/23/21 documented as of this encounter
--- OUTSIDE RECORDS SUMMARY | 2025-02-25 11:09 | External Medical Summary | Summary of Care ---
Author Name Unknown Organization [facility] Address [address] [place] [address] Phone [phone] Care Team Providers Care Reconciler Name Role Phone Franco De MD Primary Care Provider Encounter Details Date Type Department Care Team (Late st Contact Info) Description 02/10/2025 Result Scan Unspecified Department <No scans attached> Allergies Active Allergy Reactions Criticality Noted Date [...] the morning. 90 Tablet 2 5 Active documented as of this encounter [...] mRNA, LNP-s, No Pre serve, 2-Dose Series ([employer]) 08/12/2021,01/24/2021,01/03/2021 Pneumococcal Conjugate Vacci ne, 20-valent ([id number]) 12/18/2024 Pneumococcal Polysaccharide PPV23 (Pneumovax) 12/11/2011 Seasonal [...] 10/10/2020 12:19 PM EST Brendan ward, Suzanne, TAKE OFF WORKER * Do you have difficulty dressing or bathing? (5 years old or older) Answer Date of Assessment Author No 01/30/2018 11:08 PM EDT Lizeth Khoury RN * Because of a physical, mental, or emotional condition, do you have difficulty doing errands alone such as visiting a doctor’s office or shopping? (15 years old or older) Answer Date of Assessment Author No 01/30/2018 11:08 PM EDT Lizeth Khoury RN documented as of this encounter Mental Status * Because of a physical, mental, or emotional condition, do you have serious difficulty concentrating, remembering, or making decisions? (5 years old or older) Answer Entry Date Author No 01/30/2018 11:08 PM EDT Lizeth Khoury RN documented in this encounter Miscellaneous Notes * Result Encounter Note - Gigi Maracno PA-C - 02/23/2025 11:33 AM EDT Currently admitted to [facility] documented in this encounter Plan of Treatment Upcoming Encounters Date Type Department Care Team (Late st Contact Info) Description 03/23/2025 12:30 PM EDT Office Visit Dermatology, [facility]isse Wilkins [address] [phone] Michelle Nash PA-C [address] [place] [address] 07/05/2025 9:30 AM EDT Hospital Encounter ENDO GECL, Endoscopy [address] [place] [phone] Ryan Sharif MD [address] [place] [address] 07/05/2025 9:30 AM EDT - 07/05/2025 10:00 AM EDT Surgery ENDO GE, Endoscopy [address] [place] [phone] Ryan Sharif MD [address] [place] [address] COLONOSCOPY FLEXIBLE PROXIMAL DIAGNOSTIC 12/20/2025 2:00 PM EDT Office Visit [facility] [address] [facility] [place] [phone] Franco De MD [address] [facility] [place] [address] Scheduled Procedures Name Priority Associated Diagnoses Date/Ti [...] Procedure Name Priority Date/Time Associated Diagnosis Comments EKG SCANNED RESULT 02/10/2025 documented in this encounter Results * EKG SCANNED RESULT (02/10/2025) 02/10/2025 us No Physician Data Unknown EKG Final Result documented in this encounter Advance Directives [...] and were consensually agreed upon. Care Teams Reconciler Relationship Specialty Start Date End Date Franco De MD [address] [place] [id number] PCP - General Family Medicine 11/23/21 documented as of this encounter
--- OUTSIDE RECORDS SUMMARY | 2025-02-25 11:09 | External Medical Summary | Summary of Care ---
Author Name Unknown Organization [facility] Address [address] [place] [address] Phone [phone] Care Team Providers Care Automotive Light Mechanic Name Role Phone Franco De MD Primary Care Provider Reason for Visit * Reason Comments Pre-op Clearance Encounter Details Date Type Department Care Team (Late st Contact Info) Description 02/15/2025 12:40 PM EDT Office Visit [facility] [address] [place] [phone] Franco De MD [address] [place] [address] Preoperative clearance*; Severe persistent asthma [...] 5 Active Airsupra 90-80 MCG/ACT Inhalation Aerosol (Albuterol-B[place]elton sonide) Inhale 1-2 puffs every 4-6 hours [...] mRNA, LNP-s, No Pre serve, 2-Dose Series ([employer]ell[employer]) 08/12/2021,01/24/2021,01/03/2021 Pneumococcal Conjugate Vacci ne, 20-valent ([id number]) 12/18/2024 Pneumococcal Polysaccharide PPV23 (Pneumovax) 12/11/2011 Seasonal [...] 10/10/2020 12:19 PM EST Brendan ward, Suzanne, BUS DISPATCHER INTERSTATE * Do you have difficulty dressing or [...] on labs. Just received today. Labs from [facility] and CXR reviewed, all normal. ECG reviewed, [...] EKG, CXR, and blood work done at [facility] 5 days ago (results not received). [...] results of labs, EKG and CXR from [facility], he is medically cleared for sugery. [...] [address] [place] [address] Michelle Nash PA-C [address] [place] [address] 07/05/2025 9:30 AM EDT Hospital Encounter ENDO GECL, Endoscopy Suite [facility] [address] [facility] [place] [phone] Ryan Sharif MD [address] [place] [address] 07/05/2025 9:30 AM EDT - 07/05/2025 10:00 AM EDT Surgery ENDO GECL, Endoscopy Suite [facility] [address] [facility] [place] [phone] Ryan Sharif MD [address] [place] [address] COLONOSCOPY FLEXIBLE PROXIMAL DIAGNOSTIC 12/20/2025 2:00 PM EDT Office Visit [facility] [address] [place] [phone] Franco De MD [...] and were consensually agreed upon. Care Teams Automotive Light Mechanic Relationship Specialty Start Date End Date Franco De MD [address] [place] [address] PCP - General Family Medicine 11/23/21 documented as of this encounter
--- NOTE | 2025-02-25 13:12 | Discharge Summary ---
Date of Service February 25, 2025 Admission HPI Per Admitting Provider 59-year-old male with chronic bilateral knee pain related to osteoarthritis. He has had previous injections of steroids but they are no longer working and wants to proceed with knee replacement. He has diminishing function in his left knee. Patient denies headaches, sweats, fevers, chills, double vision, blurred vision, cough, sore throat, dysphagia, chest pain, n/v/d/c, numbness, tingling, fatigue, urinary symptoms, mood disorders. ROS positive for shortness of breath with activity climbing a flight of stairs walking up a hill or running short distance. Acid reflux. Principal Diagnosis left knee osteoarthritis Discharge Data Allergies Allergy/AdvReac Type Severity Reaction Status Date / Time Sulfa (Sulfonamide Allergy Rash Verified 02/24/25 10:31 Antibiotics) Procedures Performed Operation Date: 02/24/25 12:35 Actual Procedures p Left Total Knee Arthroplasty(Left) - Avinash Fragoso MD Ordered Studies 02/24/25 05:00 US - OR guided needle placemen Routine Hospital Course (1) Bilateral primary osteoarthritis of knee: Postop day 1 left knee replacement. Patient doing satisfactory. Patient can have drain DC'd prior to discharge and be discharged home today and do outpatient physical therapy at [place]. Follow-up 2 weeks for staple removal. Bilateral knee osteoarthritis left end-stage right mild to moderate. Proceed with left total knee replacement. Total Time Total Time Spent Total Time Spent (In Minutes): 20 Discharge Plan Discharge Items Patient Disposition: Home - Self-Care Reason For Visit: Left Knee Degenerative Joint Disease Discharge Diagnosis: Left knee osteoarthritis Activity: Per Instructions section Non-emergency contact: Primary Care Provider and Surgeon Call non-emergency contact if: your pain is not controlled, your pain is worsening and your temperature is above 101 Follow-up/Referrals: Franco De MD [Primary Care Provider] - Diet: Regular Addtl Attending Provider Instructions: ACTIVITY RECOMMENDATIONS: SELF CARE INSTRUCTIONS AFTER TOTAL KNEE REPLACEMENT A. You may need to continue a physical therapy program after discharge from the hospital. There are several options available to you. Your doctor will assist you in selecting the best one for you. 1. An out-patient facility 3 times a week for therapy. 2. Home therapy for 1 to 2 weeks with outpatient therapy to follow. 3. Continue working on all exercises taught by physical therapy three times a day for 20 minutes on non-therapy days. Your goals should be to increase the bending of your knee to 90 degrees and beyond and to fully straighten your knee. Ice and elevate knee after exercise. B. Weight as tolerated with a walker or as instructed by your physician. C. It is okay to shower if minimal to no drainage from incision. No Baths. Do not soak wound. D. Make walking a part of your daily routine. Be up as much as comfortable with rest periods throughout the day. Rest with leg elevation is very important. Use the ice wrap frequently for the first 3-4 weeks. E. There are no restrictions on activities. You may ride in a car, shop, participate in conveyor weigher operator and all social activities. F. Wear the long elastic stockings (EDSON hose) 20 hours a day for one month after surgery. They can be removed several times a day for laundering and when showering. G. You may return to previous diet. H. LEANDRO dressing: You have a LEANDRO dressing on your surgical wound. It will remain in place for 7 days from surgery. You will be provided with a booklet with the do's and don'ts with the dressing in place. After 7 days, the dressing may be removed. If there is drainage from the surgical incision, you may cover the wound with dry dressings SPECIAL CARE INSTRUCTIONS: VERY IMPORTANT TO READ AND REVIEW A. Take Coumadin, Xarelto, Aspirin or Lovenox (blood thinning medications) as directed by your doctor. If on Coumadin, have a pro-time (blood test) drawn according to your doctor's instructions. This will tell the doctor how well the Coumadin is thinning your blood. B. There are a few signs you need to watch for after you are home. Call [facility] if you notice any of the followin. Increased severe knee pain. Some pain is expected especially when you exercise. 2. Increased swelling in your leg or knee; pain or swelling of the calf muscle in either lower leg. 3. Any redness or fluid drainage from the incision. 4. Shortness of breath or chest pain. 5. A Temperature of 101 degrees F or greater. C. Please call [facility] at if you have any concerns or questions about your operation or recovery. The doctor or his nurse will return your call promptly. D. You must take antibiotics before dental work, bladder, bowel or other surgery. Your doctor will provide you with a permanent care to carry describing this precaution. FOLLOW UP VISIT: If appointment is not already scheduled: Please call [facility] to make a follow-up appointment for 2 weeks after your surgery at . Pending Studies at Discharge: No Stand-Alone Forms: My [facility], Smoking Cessation Medications and DC Order Prescriptions: New aspirin 81 mg tablet,delayed release (DR/EC) 81 mg PO BID Qty: 60 0RF cefadroxil 500 mg capsule 500 mg PO Q12H 14 Days Qty: 28 0RF oxycodone 5 mg tablet 5 mg PO Q4H PRN (Reason: pain) Qty: 20 0RF acetaminophen [Tylenol Extra Strength] 500 mg tablet 1,000 mg PO Q8H Qty: 90 0RF Continued zinc 15 mg Tablet 15 mg PO QPM Rx Instructions: w/ Vitamin C 270mg vitamin B complex Tablet 1 tab PO QAM cholecalciferol (vitamin D3) [Vitamin D3] 50 mcg (2,000 unit) Capsule 50 mcg PO QAM Claritin-D 24 Hour 10-240 mg Tablet Extended Release 24 Hr 1 tab PO DAILY PRN (Reason: allergies) amlodipine 10 mg Tablet 10 mg PO QAM losartan 100 mg Tablet 100 mg PO QAM fluticasone propionate 50 mcg/actuation [place],Suspension 2 spray INTRANASAL DAILY PRN (Reason: Congestion) Rx Instructions: administer into each nostril Excedrin Extra Strength 250-250-65 mg Tablet 1 tab PO Q6H PRN (Reason: Pain) omeprazole 20 mg Tablet,Delayed Release (Dr/Ec) 20 mg PO QAM Breztri Aerosphere 160-9-4.8 mcg/actuation Hfa Aerosol Inhaler 2 inh INHALATION BID Airsupra 90-80 mcg/actuation Hfa Aerosol Inhaler 2 inh INHALATION DAILY PRN (Reason: Shortness Of Breath) Discontinued acetaminophen [Tylenol Ex Str Arthritis Pain] 500 mg Tablet 1,000 mg PO Q6H PRN (Reason: Pain) Discharge Orders: Discharge Order (Routine); Ordered 02/25/25 Ordered By: Avinash Fragoso Admission Data Admit Date/Time: 02/24/25 15:19 Attending Provider: Avinash Fragoso Admit Provider: Avinash Fragoso Primary Care Provider: Franco De Other Interventions: Discharge Summary Assessment (RN) Last Done: 02/25/25 11:04
--- OUTSIDE RECORDS SUMMARY | 2025-02-25 22:51 | External Medical Summary | Summary of Care ---
Author Name Unknown Organization [facility] Address [address] [place] [address] Phone [phone] Care Team Providers Care Physician Practice Market Manager Name Role Phone Franco De MD Primary Care Provider Reason for Visit * Reason Onset Date Comments Advice 02/23/2025 Left message 02/11 3 Encounter Details Date Type Department Care Team (Late st Contact Info) Description 02/23/2025 Telephone [facility] [address] [place] [address] Franco De MD [address] [place] [address] Advice (Left message 02/23) Allergies [...] mRNA, LNP-s, No Pre serve, 2-Dose Series ([employer]) 08/12/2021,01/24/2021,01/03/2021 Pneumococcal Conjugate Vacci ne, 20-valent ([id number]) 12/18/2024 Pneumococcal Polysaccharide PPV23 (Pneumovax) 12/11/2011 Seasonal [...] 10/10/2020 12:19 PM EST Brendan ward, Suzanne, MANIPULATOR OPERATOR * Do you have difficulty dressing or [...] encounter Miscellaneous Notes * Telephone Encounter - Laya Vick MED ASSIST - 02/24/2025 11:41 AM EDT Late entry 4:35 pm 02/23/25 Addressed with María ZAMORA with Elaine Manzano and Dr De Anda and addendum was charted ok to proceed with surgery. * Telephone Encounter - Kay Santos OSA - 02/23/2025 4:23 PM EDT Reason for patient's call: Regarding in below for PreOp for surgery tomorrow 02/24 Caller was transferred to [facility] at the clinic. * Telephone Encounter - Jarocho Murdock OSA - 02/23/2025 3:58 PM EDT Tracey calling back from [facility] [address] need EKG clearance from 02/15 addended ( in Epic) to cleared. Patient having surgery tomorrow [phone] * Telephone Encounter - Laya Vick MED ASSIST - 02/23/2025 3:46 PM EDT Left message for Tracey that pt was cleared and to call back for note if needed to . * Telephone Encounter - Marli Oneil LPN - 02/23/2025 3:23 PM EDT [facility] [address] Anesthesia calling to question if pt is cleared for surgery, which is sched tomorrow; needing an answer by 4:00pm today Dr Pandya out of clinic, will ask Dr De Anda to review Labs, EKG, cxr available for review in [facility], pre op exam done on 02/15/25 * Telephone Encounter - Naida Patricia OSA - 02/23/2025 3:23 PM EDT Please let Tracey know at [phone] if a provider can complete this. If it will be after 4pm she states to please have someone call her and they will try to work with you on this as they'd like to keep the pt on schedule for his surgery. * Telephone Encounter - Kiki Lau LPN - 02/23/2025 11:28 AM EDT Tracey from [facility] [address] Anesthesia dept calling Pt is scheduled for surgery tomorrow 02/24, Dr Fragoso. All his preop testing is avail in [facility] to review. Please indicate if he is cleared for surgery. Tracey has access to [facility], please addend OV note from 02/15, she will be able to review it. * Telephone Encounter - Monique Weston OSA - 02/23/2025 11:27 AM EDT Tracey from [facility] [address] Anesthesia, transferred to [facility] Nurse Telma documented in this encounter Plan of Treatment Upcoming Encounters Date Type Department Care Team (Late st Contact Info) Description 03/23/2025 12:30 PM EDT Office Visit Dermatology, Denisse Wilkins [address] [place] [address] Michelle Nash PA-C [place] [address] 07/05/2025 9:30 AM EDT Hospital Encounter ENDO GECL, Endoscopy [address], [place] [phone] Ryan Sharif MD [address] [facility] [place] [address] 07/05/2025 9:30 AM EDT - 07/05/2025 10:00 AM EDT Surgery ENDO GECL, Endoscopy [address], [place] [phone] Ryan Sharif MD [address] [place] [address] COLONOSCOPY FLEXIBLE PROXIMAL DIAGNOSTIC 12/20/2025 2:00 PM EDT Office Visit [facility] [address] [facility] [place] [phone] Franco De MD 21 [facility] [place] [address] Scheduled Procedures Name Priority Associated Diagnoses Date/Ti [...] and were consensually agreed upon. Care Teams Physician Practice Market Manager Relationship Specialty Start Date End Date Franco De MD [address] [place] [phone] PCP - General Family Medicine 11/23/21 documented as of this encounter
== END 2025-02-25 12:00 | disposition home or self-care (01) ==
LOC: 3E 10:38 → ASU 10:38
DX: J44.9 Chronic obstructive pulmonary disease, unspecified; Z88.2 Allergy status to sulfonamides; J45.909 Unspecified asthma, uncomplicated; I10 Essential (primary) hypertension; G47.33 Obstructive sleep apnea (adult) (pediatric); Z79.82 Long term (current) use of aspirin; M17.0 Bilateral primary osteoarthritis of knee; K21.9 Gastro-esophageal reflux disease without esophagitis; Z79.899 Other long term (current) drug therapy; G43.909 Migraine, unspecified, not intractable, without status migrainosus